=== PATIENT | female | born 1990 | race Two or more races ===

== ENCOUNTER 2019-07-18 14:42 | Outpatient (CLI) | payer OTHER ==
[~2019-07-18 14:42] MED LIST: PANADOL EXTRA500 MG PO; RHOGAM300 MCG/SY IM
== END 2019-07-18 15:36 | disposition home or self-care (01) ==
LOC: NUCLEAR 14:42
DX: O22.8X2 Other venous complications in pregnancy, second trimester (principal); I87.2 Venous insufficiency (chronic) (peripheral); O22.02 Varicose veins of lower extremity in pregnancy, second trimester

== ENCOUNTER 2019-10-30 07:41 | Outpatient (CLI) | payer OTHER | END 2019-10-30 08:26 | disposition home or self-care (01) | LOC: NST 07:41 | PROVIDERS: ATTEND Obstetrics & Gynecology | DX: Z34.83 Encounter for supervision of other normal pregnancy, third trimester (principal) ==

== ENCOUNTER 2019-10-30 09:36 | Inpatient (IN) | payer OTHER ==
[~2019-10-30] VITALS: Ht 157.5 cm; Wt 56.2 kg
[2019-11-08] MEDS ORDERED: PRENATAL TABLE1 EAC3 PO (08:19)
== END 2019-11-09 17:02 | DRG 807 ==
LOC: LDR 11-08 06:42 → OB/GYN 11-08 12:53
PROVIDERS: ADMIT Obstetrics & Gynecology; ATTEND Obstetrics & Gynecology
PROC: 10E0XZZ Delivery of Products of Conception, External Approach (ICD-10-PCS; principal; 2019-11-08)
PROC: 4A0HXFZ Measurement of Products of Conception, Cardiac Rhythm, External Approach (ICD-10-PCS; 2019-11-08)
DX: O80 Encounter for full-term uncomplicated delivery (principal); Z37.0 Single live birth; Z3A.38 38 weeks gestation of pregnancy

== ENCOUNTER → 2019-11-03 | Outpatient (CLI) | payer OTHER ==
[~2019-11-03] MED LIST changes: +PRENATAL TABLE1 EAC3 PO
== END | disposition home or self-care (01) ==
LOC: NST 09:51
PROVIDERS: ATTEND Obstetrics & Gynecology
DX: Z34.83 Encounter for supervision of other normal pregnancy, third trimester (principal)